=== PATIENT | male | born 1985 | race Caucasian/White ===

== ENCOUNTER 2021-11-20 09:40 | Emergency (ER) | payer OTHER, MEDICARE, MEDICAID ==
[2021-11-20] MEDS ORDERED: OLANZapine 5 MG Tab PO ONE (11:06)
== END 2021-11-20 12:50 | disposition home or self-care (01) ==
LOC: FB.ED 09:40
DX: F32.9 Major depressive disorder, single episode, unspecified (principal)
CPT/HCPCS: 71046; 99284; A9270